=== PATIENT | female | born 1985 | race Caucasian/White ===

== ENCOUNTER 2016-05-07 23:57 | Emergency (ER) | payer SELFPAY ==
[~2016-05-07] VITALS: Ht 165.1 cm; Wt 57.0 kg
[~2016-05-07 23:57] MED LIST: CIPR500T4 PO; PYRI200T4 PO
[2016-05-07 23:59] VITALS: BP 125/67; PULSE 118; RESP 18; TEMP 100.2; O2SAT 98
== END 2016-05-08 01:31 | disposition left against medical advice (07) ==
LOC: NED 23:57
DX: R10.9 Unspecified abdominal pain (principal)
CPT/HCPCS: 99281

== ENCOUNTER 2016-07-10 02:47 | Emergency (ER) | payer SELFPAY ==
[~2016-07-10] VITALS: Ht 165.1 cm; Wt 56.0 kg
[2016-07-10 02:48] VITALS: BP 134/99; PULSE 111; RESP 20; TEMP 98.6; O2SAT 98
[2016-07-10] MEDS ORDERED: ONDANSETRON HCL 4 MG/2 ML VIAL ONE (03:43)
[2016-07-10 03:48] VITALS: BP 109/72; O2SAT 95
[2016-07-10] MEDS ORDERED: KETOROLAC TROMETHAMINE 30 MG/ML (IVP) VIAL IV PUSH ONE (04:00)
[2016-07-10] MEDS ORDERED: SODIUM CHLOR 0.9% 1000 ML INJ 1,000 ML IV ONE (04:00)
[2016-07-10] MEDS ORDERED: CLINDAMYCIN INJ 900 MG in SODIUM CHLORIDE 0.9% INJ 100 ML IV ONE (04:00)
--- NOTE | 2016-07-10 04:37 | PD ---
HPI Chief Complaint: Facial Pain or Swelling Time Seen by Provider: 03:41 Travel History International Travel<30 days: No Contact w/Intl Traveler<30days: No Traveled to known affect area: No History of Present Illness HPI The patient is a 30 year old female who presents to the [facility] emergency department with a history of a few days ago while eating having her tooth break. She reports that the tooth present in the right side, her right canine. The patient reports that yesterday she began to have pain at the site and swelling to her face. She reports that it is gradually gotten worse with time. She denies having any known fevers. She denies having any known chills. She reports that she has had some clear rhinorrhea. The patient reports that she last saw a dentist approximately a year ago. The patient denies any cough, congestion, neck pain, chest pain, shortness of breath, abdominal pain, vomiting , diarrhea, urinary symptoms, or neurologic symptoms. LMP: June 26, 2016. [facility] Past Medical History Narrative Medical The patient's past medical history is significant for IV drug use of Dilaudid. The patient reports that she last used IV drugs yesterday. The patient has a history of anxiety and depression, migraine headaches, ovarian cysts, fibromyalgia, chronic right hip pain. Blood Disorders: No Anxiety: Yes Depression: Yes Cancer: No Cardiovascular Problems: Yes Diminished Hearing: No Endocrine: No Fibromyalgia: Yes Gastrointestinal Disorders: Yes Genitourinary: Yes (ENDOMETROSIS) Headaches: Yes Immune Disorder: No Implanted Vascular Access Dvce: No Musculoskeletal: Yes Neurologic: Yes Respiratory: No Immunizations Current: No Migraines: Yes PNEUMOCCOCAL Vaccine (Year): 2 ?: Unknown Menopausal: No : 2 Para: 2 Miscarriage: 0 : 0 Ovarian Cysts: Yes (juliet. ) Tubal Ligation: Yes Past Surgical History Narrative Surgical The patient's past surgical history is significant for bilateral tubal ligation , cholecystectomy, tonsillectomy, laparoscopy for endometriosis, right hip surgery for hip impingement. Abdominal Surgery: Yes (laporoscopy for endometriosis) Cholecystectomy: Yes Endocrine Surgery: Yes (TONSILS) Gynecologic Surgery: Yes (TUBAL LIGATION) Tonsillectomy: Yes Other Surgery: Yes Social History Alcohol Use: No Tobacco Use: Yes (1/2 PK) Substance Use: Yes (last used yesterday IV Dilaudid) Allergies-Medications (Allergen,Severity, Reaction): Coded Allergies: Albuterol (Verified Allergy, Severe, SWELLS UP, 07/10/16) Codeine (Verified Allergy, Severe, 07/10/16) Penicillin (Verified Allergy, Severe, STS GI BLEED, 07/10/16) Reglan (Verified Adverse Reaction, Severe, PANIC ATTACK, 07/10/16) Reported Meds & Prescriptions Reported Meds & Active Scripts Active Ibuprofen 600 Mg Tab 600 Mg PO Q8HR PRN Clindamycin (Clindamycin HCl) 300 Mg Cap 300 Mg PO TID Review of Systems Except as stated in HPI: all other systems reviewed are Neg General / Constitutional: No: Fever Eyes: No: Visual changes HENT: Positive: Rhinorrhea, Gingival Bleeding, Dental Difficulties, Other ( right facial swelling), No: Headaches, Congestion Cardiovascular: No: Chest Pain or Discomfort Respiratory: No: Cough, Shortness of Breath Gastrointestinal: No: Nausea, Vomiting, Diarrhea, Abdominal Pain Genitourinary: No: Dysuria Musculoskeletal: No: Pain Skin: No Rash Neurologic: No: Weakness Psychiatric: No: Depression Endocrine: No: Polydipsia Hematologic/Lymphatic: No: Easy Bruising Physical Exam Narrative General: The patient is a well-developed well-nourished female in no acute distress. She is uncomfortable appearing on examination related to right-sided facial pain and swelling. Head and Neck exam: Head is normocephalic atraumatic. The patient has right-sided facial pain and swelling noted. The patient has tenderness on palpation overlying the right maxilla and the right cheek area. There is no crepitus. Eyes: EOMI, pupils are equal round and reactive to light. Nose: Midline septum with pink mucous membranes Mouth: The patient has poor dentition throughout her mouth. The patient has some gingival erythema, the patient has the distal tip of the right canine and her maxilla avulsed. The patient has no pal abscess formation. No swelling underneath her tongue. Moist mucus membranes. Posterior oropharynx is not erythematous. No tonsillar hypertrophy. Uvula midline. Airway patent. Neck: No palpable lymphadenopathy. No nuchal rigidity. No thyromegaly. Cardiovascular: Sinus tachycardia in the low 100 without murmurs, gallops, or rubs. Lungs: Clear to auscultation bilaterally. No wheezes, rhonchi, or rales. Abdomen: Soft, without tenderness to palpation in all 4 quadrants of the abdomen. No guarding, rebound, or rigidity. Normal bowel sounds are audible. Extremities: No clubbing, cyanosis, or edema. 2+ pulses in all 4 extremities. Back: No spinous process tenderness to palpation. No costovertebral angle tenderness to palpation. Neurologic Exam: Grossly nonfocal. Skin Exam: No rash noted. Intact skin that is warm and dry. Data Data Last Documented VS Vital Signs Date Time Temp Pulse Resp B/P Pulse Ox O2 Delivery O2 Flow Rate FiO2 07/10/16 05:02 16 96 Room Air 07/10/16 03:48 107 109/72 07/10/16 02:48 98.6 Orders Ondansetron Inj (Zofran Inj) (07/10/16 03:43) Complete Blood Count With Diff (07/10/16 03:54) Comprehensive Metabolic Panel (07/10/16 03:54) C-Reactive Protein (Crp) (07/10/16 03:54) Urinalysis - C+S If Indicated (07/10/16 03:54) Ecg Monitoring (07/10/16 03:54) Oximetry (07/10/16 03:54) Blood Culture (07/10/16 03:54) Lactic Acid Sepsis Protocol (07/10/16 03:54) Sodium Chlor 0.9% 1000 Ml Inj (Ns 1000 M (07/10/16 04:00) Clindamycin Inj (Cleocin Inj) (07/10/16 04:00) Ketorolac Inj (Toradol Inj) (07/10/16 04:00) Ct Facial Bones W/O Iv Cont (07/10/16 04:06) Labs Laboratory Tests Test 07/10/16 07/10/16 04:25 05:55 White Blood Count 15.1 TH/MM3 Red Blood Count 4.51 MIL/MM3 Hemoglobin 13.6 GM/DL Hematocrit 39.3 % Mean Corpuscular Volume 87.2 FL Mean Corpuscular Hemoglobin 30.2 PG Mean Corpuscular Hemoglobin 34.6 % Concent Red Cell Distribution Width 15.5 % Platelet Count 273 TH/MM3 Mean Platelet Volume 8.2 FL Neutrophils (%) (Auto) 80.8 % Lymphocytes (%) (Auto) 10.1 % Monocytes (%) (Auto) 7.9 % Eosinophils (%) (Auto) 0.6 % Basophils (%) (Auto) 0.6 % Neutrophils # (Auto) 12.2 TH/MM3 Lymphocytes # (Auto) 1.5 TH/MM3 Monocytes # (Auto) 1.2 TH/MM3 Eosinophils # (Auto) 0.1 TH/MM3 Basophils # (Auto) 0.1 TH/MM3 CBC Comment DIFF FINAL Differential Comment Lactic Acid Level 1.3 mmol/L Sodium Level 137 MEQ/L Potassium Level 4.2 MEQ/L Chloride Level 104 MEQ/L Carbon Dioxide Level 24.6 MEQ/L Anion Gap 8 MEQ/L Blood Urea Nitrogen 11 MG/DL Creatinine 0.78 MG/DL Estimat Glomerular Filtration 86 ML/MIN Rate Random Glucose 92 MG/DL Calcium Level 8.3 MG/DL Total Bilirubin 0.9 MG/DL Aspartate Amino Transf 69 U/L (AST/SGOT) Alanine Aminotransferase 47 U/L (ALT/SGPT) Alkaline Phosphatase 108 U/L C-Reactive Protein 10.00 MG/DL Total Protein 9.3 GM/DL Albumin 3.6 GM/DL MDM Medical Decision Making Medical Screen Exam Complete: Yes Emergency Medical Condition: Yes Medical Record Reviewed: Yes Interpretation(s) Last Impressions Maxillofacial CT 07/10/16 0406 Signed Impressions: Service Date/Time: Sunday, July 10, 2016 04:31 - CONCLUSION: 1. Soft tissue swelling in the right face beginning just below the right high appears to be secondary to a region of cellulitis. 2. Isolated, mild chronic sinus disease in the right maxillary antra. Cornelius Cota MD Differential Diagnosis Dentalgia, versus dental abscess, versus maxillary sinusitis. Narrative Course During the course of the patients emergency department visit, the patients history, examination, and differential diagnosis were reviewed with the patient. The patient had IV access obtained and blood work sent for analysis. The patient was placed on a bus driver/monitor with oximetry and blood pressure monitoring. The patient was provided normal saline 1 L IV fluid bolus, clindamycin 900 mg IV , Toradol 15 mg IV. The patients laboratory studies were reviewed and remarkable for a white count of 15.1, hemoglobin 13.6, platelets 273, neutrophils 80.8, lactic acid is 1.3, CMP is remarkable for heart rate is regular, calcium 8.3, AST 69, C-reactive protein 10, total protein 9.3 Radiology studies were reviewed and remarkable for a CT scan of the facial bones shows soft tissue swelling in the right face beginning just below the right eye appears to be secondary to a region of cellulitis, isolated mild chronic sinus disease in the right maxillary antra is noted. No evidence of abscess. The patient will be discharged home with a prescription for ibuprofen and antibiotic. The patient was instructed regarding the importance of following up with a dentist as soon as possible. The patient is resting comfortably and feels better, is alert and in no distress. The patients results and examination findings were discussed with the patient. The repeat examination is unremarkable and benign. The history, exam, diagnostic testing, and current condition do not suggest any significant pathology to warrant further testing, continued ED treatment, admission, or surgical evaluation at this point. The vital signs have been stable. The patient does not have uncontrollable pain, intractable vomiting, or other significant symptoms. The patient's condition is stable and appropriate for discharge. The patient will pursue further outpatient evaluation with a primary care physician or other designated or consulting physician as indicated in the discharge instructions. The patient expressed understanding and was agreeable with this plan. Diagnosis Primary Impression: Pain, dental Additional Impressions: Right facial swelling Cellulitis Qualified Code: L03.211 - Cellulitis of face Referrals: Dentist 1 day Primary Care Physician 2 days Patient Instructions: Cellulitis (ED), Dental Caries (ED), General Instructions Med/Other Pt SpecificInfo: Prescription(s) given Scripts Ibuprofen 600 Mg [id number] Mg PO Q8HR PRN (PAIN) #12 TAB Ref 0 Prov:Carly Lerner MD 07/10/16 Clindamycin 300 Mg [id number] Mg PO TID #30 CAP Ref 0 Prov:Carly Lerner MD 07/10/16 Disposition: DISCHARGE HOME Condition: Stable Carly Lerner MD Jul 10, 2016 04:37
[2016-07-10 04:45] LABS: AUTOMATED NEUTROPHIL # 12.2 TH/MM3 (1.8-7.7); BASOPHIL # 0.1 TH/MM3 (0-0.2); BASOPHIL % 0.6 % (0.0-2.0); EOSINOPHIL # 0.1 TH/MM3 (0-0.4); EOSINOPHIL % 0.6 % (0.0-4.0); HEMATOCRIT 39.3 % (35.0-46.0); HEMO FLAGS DIFF FINAL; LYMPH % 10.1 % (9.0-44.0); LYMPHOCYTE # 1.5 TH/MM3 (1.0-4.8); MEAN CELL VOLUME 87.2 FL (80.0-100.0); MEAN CORPUSCULAR HEMOGLOBIN 30.2 PG (27.0-34.0); MEAN CORPUSCULAR HGB CONC 34.6 % (32.0-36.0); MONO % 7.9 % (0.0-8.0); NEUT % 80.8 % (16.0-70.0); PLATELET COUNT 273 TH/MM3 (150-450); RED BLOOD COUNT 4.51 MIL/MM3 (4.00-5.30); RED CELL DISTRIBUTION WIDTH 15.5 % (11.6-17.2); WHITE BLOOD COUNT 15.1 TH/MM3 (4.0-11.0)
--- NOTE | 2016-07-10 04:58 | RADRPT ---
EXAM DATE/TIME: 07/10/2016 04:31 [place] COMPARISON: No previous studies available for comparison. INDICATIONS : Right sided facial swelling. RADIATION DOSE: 30.0 CTDIvol (mGy) MEDICAL HISTORY : Cardiovascular disease. SURGICAL HISTORY : Tubal ligation. Tonsillectomy. ENCOUNTER: Initial ACUITY: 2 days PAIN SCORE: 6/10 LOCATION: Right facial TECHNIQUE: Volumetric scanning of the facial bones was performed. Using automated exposure control and adjustme nt of the mA and/or kV according to patient size, radiation dose was kept as low as reasonably achiev able to obtain optimal diagnostic quality images. FINDINGS: ORBITS: The orbital and infraorbital osseous structures are intact. The retroconal structures have a normal configuration. No radiopaque foreign bodies are seen. NASAL BONE: The nasal bone and maxillary spine are intact ZYGOMATIC ARCHES: Symmetric without evidence of fracture. SINUSES: Mild bronchial thickening in the right maxillary antra. This appears isolated NASAL CAVITY: The nasal septum is intact and midline. The lacrimal ducts are intact. SOFT TISSUES: Soft-tissue swelling and stranding of the subcutaneous tissues beginning just below the right globe a nd extending inferiorly into the right cheek region. INTRACRANIAL: No intracranial air seen. CRIBIFORM PLATE: Grossly intact. CONCLUSION: 1. Soft tissue swelling in the right face beginning just below the right high appears to be secondary to a region of cellulitis. 2. Isolated, mild chronic sinus disease in the right maxillary antra. Cornelius Cota MD on July 10, 2016 at 4:53 Board Certified Radiologist. This report was verified electronically.
[2016-07-10 05:02] VITALS: RESP 16; O2SAT 96
[2016-07-10 05:12] LABS: ALKALINE PHOSPHATASE 108 U/L (45-117); TOTAL BILIRUBIN ADULT 0.9 MG/DL (0.2-1.0)
[2016-07-10 06:58] LABS: ALT (GPT) 47 U/L (10-53); ANION GAP 8 MEQ/L (5-15); AST (GOT) 69 U/L (15-37); BICARBONATE 24.6 MEQ/L (21.0-32.0); BLOOD UREA NITROGEN 11 MG/DL (7-18); CHLORIDE 104 MEQ/L (98-107); GLOMERULAR FILTRATION RATE 86 ML/MIN (>89); SODIUM (NA) 137 MEQ/L (136-145)
[2016-07-10 07:00] LABS: POTASSIUM 4.2 MEQ/L (3.5-5.1)
[2016-07-10] MEDS ORDERED: CLIN1CAP6 PO (07:27)
[2016-07-10] MEDS ORDERED: IBUP-232 PO (07:27)
[2016-07-10 07:44] VITALS: BP 122/85; PULSE 98; RESP 20; O2SAT 98
== END 2016-07-10 08:01 | disposition home or self-care (01) ==
LOC: NEPC 03:35
DX: K08.89 Other specified disorders of teeth and supporting structures (principal); L03.211 Cellulitis of face; M79.7 Fibromyalgia; F17.210 Nicotine dependence, cigarettes, uncomplicated; F15.90 Other stimulant use, unspecified, uncomplicated
CPT/HCPCS: 70486; 80053; 83605; 85025; 86140; 87040; 96361; 96365; 96375; 99284; J1885; J2405; J7030